=== PATIENT | male | born 1970 | race Asian ===

== ENCOUNTER 2017-05-11 18:15 | Emergency (ER) | payer SELFPAY ==
[~2017-05-11] VITALS: Ht 182.9 cm; Wt 86.2 kg
[2017-05-11 18:18] VITALS: BP 145/84
== END 2017-05-11 20:35 | disposition home or self-care (01) ==
LOC: ER 18:17
DX: S71.102A Unspecified open wound, left thigh, initial encounter (principal); W46.0XXA Contact with hypodermic needle, initial encounter; Y93.89 Activity, other specified; Y92.89 Other specified places as the place of occurrence of the external cause; Y99.9 Unspecified external cause status
CPT/HCPCS: 36415; 86706; 86803; 87340; 99284; A4606; Z7610

== ENCOUNTER 2017-05-12 14:49 | Emergency (ER) | payer OTHER ==
[~2017-05-12] VITALS: Ht 182.9 cm; Wt 74.8 kg
--- NOTE | 2017-05-12 15:12 | NUR ---
AAOX3, CAME TO ER C/O PAIN TO LEFT SIDE OF THE FACE SINCE 630AM. FACE SYMMETRICAL. SPEECH COHERENT. RESP IS EVEN AND UNLABORED WITH NAD NOTED. SKIN IS WARM AND DRY. AWAITING MD FOR EVAL.
--- NOTE | 2017-05-12 15:15 | NUR ---
DR CHOUDHARY AT BS FOR EVAL.
--- NOTE | 2017-05-12 16:09 | NUR ---
SPOKE WITH FELIPE EPRP, I PRESENTED PATIENT'S INITIAL AND UPDATED VITAL SIGNS. PAGED BI SPECIALIST FELIPE MERLOS
[2017-05-12 17:00] VITALS: BP 128/74
== END 2017-05-12 17:00 | disposition home or self-care (01) ==
LOC: ER 14:51
DX: R51 Headache (principal); R20.0 Anesthesia of skin; R20.2 Paresthesia of skin
CPT/HCPCS: 99283; A4606; A6402; Z7610